=== PATIENT | male | born 2000 | race Caucasian/White ===

== ENCOUNTER 2020-10-16 08:45 | Emergency (ER) | payer MEDICAID, OTHER ==
[~2020-10-16] VITALS: Ht 175.3 cm; Wt 58.0 kg
[2020-10-16 10:32] LABS: ALANINE AMINOTRANSFERASE 33 U/L (12-78); ALBUMIN 3.8 g/dL (3.4-5.0); ANION GAP 9 mmol/L (5-15); BASOPHILS % (AUTO) 0 % (0-1); CHLORIDE 115 mmol/L (98-107); CREATININE 0.55 mg/dL (0.7-1.3); EOSINOPHILS % (AUTO) 0 % (1-7); LYMPHOCYTES % (AUTO) 13 % (22-44); MEAN CORPUSCULAR HEMOGLOBIN 29.4 pg (27.5-34.5); MEAN PLATELET VOLUME 9.4 fL (7.4-10.4); MONOCYTES % (AUTO) 6 % (2-9); NEUTROPHILS % (AUTO) 80 % (42-75); PLATELET COUNT 252 x10^3/uL (130-400); RED BLOOD COUNT 4.36 x10^6/uL (4.38-5.82); RED CELL DISTRIBUTION WIDTH 12.4 % (9.4-14.8)
[2020-10-16 10:34] LABS: ALKALINE PHOSPHATASE 87 U/L (45-117); BILIRUBIN,TOTAL 0.5 mg/dL (0.2-1.0); TOTAL PROTEIN 6.5 g/dL (6.4-8.2)
[2020-10-16 10:36] LABS: MD NO
[2020-10-16 11:00] VITALS: BP 122/68
--- NOTE | 2020-10-16 11:00 | NUR ---
REMAINS HR 119 HUNG NS LTR ERP AWARE STILL ETOH IMPARED
[2020-10-16] MEDS ORDERED: DEXTROSE 50%, 50ML SYRINGE ONE (11:05)
[2020-10-16] MEDS ORDERED: DEXTROSE 50%, 50ML SYRINGE IVPush ONE (11:30)
--- NOTE | 2020-10-16 12:09 | NUR ---
UP TO BR STEADY GAIT REQUESTED DC ERP AWARE
--- NOTE | 2020-10-16 12:15 | NUR ---
FLUIDS GIVEN PO
[2020-10-16] MEDS ORDERED: SODIUM CHLORIDE FLUSH 10ML SYR IVF ONE (12:30)
[2020-10-16] MEDS ORDERED: SODIUM CHLORIDE 0.9% 1,000ML IVBOLUS ONE (12:30)
--- NOTE | 2020-10-16 13:19 | NUR ---
AMBULATED TO DISCHARGE WINDOW STEADY GAIT
== END 2020-10-16 13:21 | disposition home or self-care (01) ==
LOC: ED 09:17
DX: F10.129 Alcohol abuse with intoxication, unspecified (principal); E16.2 Hypoglycemia, unspecified; R11.2 Nausea with vomiting, unspecified; R19.7 Diarrhea, unspecified; R10.9 Unspecified abdominal pain; Y90.9 Presence of alcohol in blood, level not specified
CPT/HCPCS: 36415; 80053; 80320; 82962; 85025; 96361; 96374; 99283; J7030; G0480

== ENCOUNTER 2020-10-16 16:35 | Emergency (ER) | payer OTHER ==
[~2020-10-16] VITALS: Ht 182.9 cm; Wt 68.9 kg
[2020-10-16] MEDS ORDERED: ONDANSETRON ODT 4 MG ONE (17:22)
[2020-10-16] MEDS ORDERED: ONDANSETRON ODT 4 MG PO ONE (17:30)
[2020-10-16 17:54] LABS: BASOPHILS % (AUTO) 0 % (0-1); EOSINOPHILS % (AUTO) 0 % (1-7); LYMPHOCYTES % (AUTO) 10 % (22-44); MEAN CORPUSCULAR HEMOGLOBIN 29.3 pg (27.5-34.5); MEAN CORPUSCULAR HGB CONC 33.9 g/dL (33.2-36.2); MEAN PLATELET VOLUME 9.2 fL (7.4-10.4); MONOCYTES % (AUTO) 7 % (2-9); NEUTROPHILS % (AUTO) 83 % (42-75); PLATELET COUNT 291 x10^3/uL (130-400); RED CELL DISTRIBUTION WIDTH 12.6 % (9.4-14.8)
[2020-10-16 18:00] LABS: ALBUMIN 4.2 g/dL (3.4-5.0); ANION GAP 9 mmol/L (5-15); CALCIUM 9.4 mg/dL (8.5-10.1); CHLORIDE 110 mmol/L (98-107)
[2020-10-16 18:02] LABS: MD NO
[2020-10-16 18:04] LABS: ALANINE AMINOTRANSFERASE 42 U/L (12-78); ALKALINE PHOSPHATASE 95 U/L (45-117); BILIRUBIN,TOTAL 1.1 mg/dL (0.2-1.0); CREATININE 0.58 mg/dL (0.7-1.3); TOTAL PROTEIN 7.4 g/dL (6.4-8.2)
--- NOTE | 2020-10-16 21:52 | NUR ---
PT TO ROOM FROM LOBBY
[2020-10-16] MEDS ORDERED: SODIUM CHLORIDE 0.9% 1,000ML IVBOLUS ONE (22:00)
[2020-10-16] MEDS ORDERED: ONDANSETRON 2MG/ML, 2ML IVPush ONE (22:00)
[2020-10-16] MEDS ORDERED: PROMETHAZINE 25 MG/ML, 1ML IM ONE (22:00)
[2020-10-16] MEDS ORDERED: PANTOPRAZOLE 40 MG IV IV ONE (22:00)
[2020-10-16] MEDS ORDERED: ONDANSETRON 2MG/ML, 2ML ONE (22:20)
[2020-10-16] MEDS ORDERED: PANTOPRAZOLE 40 MG IV ONE (22:20)
[2020-10-16] MEDS ORDERED: PROMETHAZINE 25 MG/ML, 1ML ONE (22:20)
--- NOTE | 2020-10-16 22:32 | NUR ---
PIV PLACED MEDS GIVEN
[2020-10-16 23:06] VITALS: BP 125/67
--- NOTE | 2020-10-16 23:07 | NUR ---
PT IN NAD STATES FEELS BETTER
--- NOTE | 2020-10-16 23:07 | NUR ---
Patient/Caregiver given discharge instructions and they have confirmed that they understand the instructions. Patient ambulatory with steady gait.
== END 2020-10-16 23:12 | disposition home or self-care (01) ==
LOC: ED 22:00
DX: K29.21 Alcoholic gastritis with bleeding (principal); R00.0 Tachycardia, unspecified; F10.129 Alcohol abuse with intoxication, unspecified; Y90.0 Blood alcohol level of less than 20 mg/100 ml
CPT/HCPCS: 36415; 80053; 83690; 85025; 96361; 96372; 96374; 96375; 99284; C9113; J2405; J2550; J7030; Q0162